=== PATIENT | female | born 1975 | race Caucasian/White ===

== ENCOUNTER 2020-03-02 06:26 | Outpatient (REF) | payer OTHER, SELFPAY | END 2020-03-02 06:27 | disposition home or self-care (01) | LOC: HO.LAB 06:26 | PROVIDERS: Visit Provider Internal Medicine | DX: Z20.828 Contact with and (suspected) exposure to other viral communicable diseases (principal) | CPT/HCPCS: C9803; U0003 ==

== ENCOUNTER 2024-10-14 10:56 | Emergency (ER) | payer OTHER, SELFPAY ==
--- NOTE | ~2024-10-14 | XR_ITS ---
EXAMINATION: XR HAND, RIGHT CLINICAL INFORMATION: fall, bruising COMPARISON: None available. TECHNIQUE: PA, lateral, and oblique views of the right hand. FINDINGS: The carpal bones are intact. Metacarpal bones are intact. The phalanges are intact with normal alignment. No metallic or radiopaque foreign body. No lytic or blastic lesions. No subcutaneous edema. XR/XR hand RT min 3V IMPRESSION: No acute fracture or dislocation. Electronically signed by: Jostin Cortes MD 10/14/2024 01:14 PM EDT
--- NOTE | ~2024-10-14 | XR_ITS ---
EXAMINATION: XR HIP, LEFT CLINICAL INFORMATION: fall,lateral swelling COMPARISON: Correlated to lumbar x-ray dated November 26, 2017. TECHNIQUE: AP view and oblique views of the left hip. AP view pelvis. FINDINGS: Sclerosis along the articular surface of the acetabulum, bilaterally. Asymmetric joint space narrowing both coxofemoral joints. No acute cortical disruption or malalignment, left coxofemoral joint. Spina bifida occulta S1, congenital. 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 No lytic or blastic lesions. XR/XR hip LT w PEL1V IMPRESSION: No acute fracture or dislocation. Mild osteoarthrosis/osteoarthritis both hips. Electronically signed by: Jostin Cortes MD 10/14/2024 01:12 PM EDT
--- NOTE | ~2024-10-14 | XR_ITS ---
EXAMINATION: XR FOREARM 2 VIEWS RIGHT HISTORY: fall, proximal bruising COMPARISON: There are no prior studies available for comparison. FINDINGS: AP and lateral views of the right forearm are submitted. Osseous mineralization is normal. There is no fracture or dislocation. The joint visualized wrist and elbow spaces are preserved. The soft tissues are unremarkable. XR/XR forearm RT 2V IMPRESSION: No evidence of fracture of the right forearm. Electronically signed by: Alexander Sebastian MD 10/14/2024 01:10 PM EDT
--- NOTE | ~2024-10-14 | XR_ITS ---
EXAMINATION: XR HAND, LEFT CLINICAL INFORMATION: fall, pain over 1/2nd mcps COMPARISON: None available. TECHNIQUE: PA, lateral, and oblique views of the left hand. FINDINGS: The carpal bones are intact. The metacarpal bones are intact. The phalanges of the digits are intact with normal alignment. No lytic or blastic lesions. No subcutaneous emphysema. No metallic or radiopaque foreign body. No gross bony erosions. XR/XR hand LT min 3V IMPRESSION: No acute fracture or dislocation. Negative exam. Electronically signed by: Jostin Cortes MD 10/14/2024 01:13 PM EDT
--- NOTE | ~2024-10-14 | XR_ITS ---
EXAMINATION: XR HUMERUS RIGHT HISTORY: fall, pain and bruising COMPARISON: There are no prior studies available for comparison. FINDINGS: AP and lateral views of the right humerus are submitted. Osseous mineralization is normal. There is no fracture or dislocation. The visualized shoulder and elbow joint spaces are preserved. The soft tissues are unremarkable. XR/XR humerus RT IMPRESSION: No evidence of fracture of the right humerus. Electronically signed by: Alexander Sebastian MD 10/14/2024 01:09 PM EDT
[2024-10-14 11:53] VITALS: BP 137/78; PULSE 99; RESP 22; O2SAT 97; BMI 46.1
--- NOTE | 2024-10-14 11:58 | ED_ITS ---
HPI - General Adult General Chief complaint: Fall Stated complaint: Fall down stairs, R arm, L hip leg pain Time Seen by Provider: 10/14/24 13:17 Source: patient Mode of arrival: ambulatory Limitations: no limitations History of Present Illness ED Provider: Angelica Tatum PA-C HPI narrative: Patient is a 49 year old female with no past medical history presenting after a mechanical fall this morning. She says she was turning around the corner to turn the light on before going down stairs when she lost her balance and fell face first and slid down the entire set of wooden steps. She denies LOC. She also says at the bottom of the stairs there is a pole that her left hip struck. Her pain is greatest in her right elbow, left wrist, and left hip. She endorses some numbness and tingling in her right arm shortly after the fall that has now resolved. She denies any cuts or bleeding besides a very small scratch on her left hip. She says the pain comes in waves and worsens when she stands up or walks. She denies fever, chills, dizziness, chest pain, palpitations, shortness of breath, nausea, vomiting, or abdominal pain. Onset (ago): hour(s) Radiation: non-radiation Severity: moderate Severity scale (1-10): 8 Quality: aching Pain Consistency: intermittent Relieving factors: rest Exacerbating factors: movement Associated symptoms: denies other symptoms Treatments prior to arrival: none Related Data Allergies Allergy/AdvReac Type Severity Reaction Status Date / Time No Known Allergies Allergy Verified 10/14/24 11:55 Review of Systems Constitutional: Constitutional: Reports no additional constitutional complaints, Denies chills, Denies fever(s) and Denies night sweats Eyes: Eyes: Reports no additional eye complaints, Denies blurry vision, Denies change in vision, Denies diplopia, Denies eye discharge, Denies loss of vision and Denies eye pain Cardiovascular: Cardiovascular: Reports no additional cardiovascular complaints, Denies chest pain, Denies lightheadedness, Denies Loss of Consciousness and Denies dyspnea Respiratory: Respiratory: Reports no additional respiratory complaints and Denies dyspnea Gastrointestinal: Gastrointestinal: Reports no additional gastrointestinal complaints, Denies abdominal pain, Denies melena, Denies hematochezia, Denies change in bowel habits and Denies change in stool character Genitourinary: Genitourinary: Denies hematuria, Denies urinary frequency and Denies dysuria Musculoskeletal: Musculoskeletal: Reports as per HPI Neurologic: Denies loss of vision Psychiatric: Psychiatric: Reports no additional psychiatric complaints Endocrine: Endocrine: Reports no additional endocrine complaints Hematologic/Lymphatic: Hematologic/Lymphatic: Reports no additional hematologic/lymphatic complaints Allergic/Immunologic: Allergic/Immunologic: Reports no additional allergic/immunologic complaints [facility] Past Medical History Attestation statement: The following information was validated with the patient. Source: old records reviewed and nursing notes reviewed Social History Social History Advance Directives: No Advance Directives Information Provided: No Physical Exam ED Vital Signs: Vital Signs - 24 hr 10/14/24 11:53 10/14/24 14:00 10/14/24 14:42 Temperature 98.1 F 98.1 F Pulse Rate 99 92 92 Respiratory Rate 22 H 18 18 Blood Pressure 137/78 154/87 H 154/87 H Pulse Oximetry 97 96 96 Oxygen Delivery Method Room Air Room Air Room Air BMI result Body Mass Index 46.1 Const General: cooperative, no acute distress, alert and awake Nutritional Appearance: well nourished Orientation/consciousness: patient oriented x3 HENMT Head: Yes normal to inspection and Yes atraumatic Ears: hearing grossly normal bilaterally and external ears normal General nose exam: Normal external nose present, no nasal discharge noted and no epistaxis Face and sinus: Yes normal facial exam, No abrasion and No laceration Mouth: Normal oral and palatal mucosa present, no drooling and no muffled voice Eyes General: appearance normal, both eyes and all related structures Periorbital: periorbital findings normal Eyelids: Yes eyelids normal Conjunctivae: conjunctivae normal Pupils: Equal, round and reactive pupils present EOM: EOMs intact bilaterally Neck Neck: Yes normal visual inspection and Yes full ROM Resp Effort & Inspection: normal respiratory effort and able to speak in complete sentences Back/Spine/Pelvis Other: small abrasion noted to the left hip Neuro General: patient oriented x3, moves all extremities and CN's II-XI intact bilaterally Cranial nerves: Yes Equal, round and reactive pupils present Cognition (Neuro): normal cognition Extrem General: Yes full ROM and Yes capillary refill normal Right upper extremity: elbow/forearm (small area of contusion to the dorsal right forearm) Left upper extremity: normal to inspection and wrist Left lower extremity: hip/thigh (small abrasion to the left hip - no gaping, no active bleeding) Psych Appearance: grossly normal Mental Status: mental status grossly normal Affect: normal affect Attitude: cooperative Thought process: Normal thought process present Thought content: Normal thought content present Insight: Good insight present (Psych) Course Course Course Narrative: This is a rapid medical exam performed by Vinayak Ace NP: Additional HPI, ROS, PE not included below will be deferred to primary provider. Patient is a 49-year-old right hand dominant female presenting to the emergency department with complaint of left hip, right upper arm, forearm and hand pain as well as left hand pain after a fall down a flight of 12 stairs prior to arrival. States that around 9:00 a.m. she turned to flip the light switch and fell down the stairs on her stomach. Denies head strike or loss of consciousness, is not anticoagulated. Denies neck or back pain. Ambulating without difficulty. Plan: Imaging, declined ibuprofen in triage Medical Decision Making Medical Decision Making MDM Narrative: Patient is a 49 year old assigned female at with no reported medical history presenting to the emergency department today with musculoskeletal pain after a fall. Patient's physical exam was as noted in the physical exam portion of this note. Patient's right humerus, right forearm, left hand, lumbar, and right hand x-rays showed no acute process. I explained my physical exam findings as well as all test results to the patient. I answered all questions asked by the patient. I stressed the importance of the patient taking her medication as directed (either prescribed or as the over the counter packaging recommends). I stressed the importance of the patient following up with her primary care provider. I stressed the importance of the patient returning to the emergency department immediately if her symptoms were to worsen or if she were to develop any dizziness, shortness of breath, difficulty breathing, chest pain, blurry vision, loss of vision, nausea, vomiting, abdominal pain, fever, chills, back pain, or any other complaints. Patient verbalized agreement and understanding with this treatment plan and discharge. Differential Diagnosis Differential Diagnoses: The differential diagnosis associated with the presentation includes Fall Contusion Fracture Strain Sprain Admission/Observation Consideration of admission/observation: Escalation of care including admission/observation considered Patient would have been admitted to the hospital had her work up had any findings where hospital admission was appropriate and her clinical presentation warranted hospital admission. Independent Interpretation I performed an independent interpretation of an: Plain X-Ray Interpretation: My interpretation is in agreement with the radiologist's impression of these imaging studies. EXAMINATION: XR HUMERUS RIGHT HISTORY: fall, pain and bruising COMPARISON: There are no prior studies available for comparison. FINDINGS: AP and lateral views of the right humerus are submitted. Osseous mineralization is normal. There is no fracture or dislocation. The visualized shoulder and elbow joint spaces are preserved. The soft tissues are unremarkable. XR/XR humerus RT IMPRESSION: No evidence of fracture of the right humerus. Electronically signed by: Alexander Sebastian MD 10/14/2024 01:09 PM EDT Dictated By: Alexander Sebastian MD Signed By: Electronically signed by Alexander Sebastian MD 10/14/24 1309 EXAMINATION: XR FOREARM 2 VIEWS RIGHT HISTORY: fall, proximal bruising COMPARISON: There are no prior studies available for comparison. FINDINGS: AP and lateral views of the right forearm are submitted. Osseous mineralization is normal. There is no fracture or dislocation. The joint visualized wrist and elbow spaces are preserved. The soft tissues are unremarkable. XR/XR forearm RT 2V IMPRESSION: No evidence of fracture of the right forearm. Electronically signed by: Alexander Sebastian MD 10/14/2024 01:10 PM EDT Dictated By: Alexander Sebastian MD Signed By: Electronically signed by Alexander Sebastian MD 10/14/24 1310 EXAMINATION: XR HAND, LEFT CLINICAL INFORMATION: fall, pain over 03/07 mcps COMPARISON: None available. TECHNIQUE: PA, lateral, and oblique views of the left hand. FINDINGS: The carpal bones are intact. The metacarpal bones are intact. The phalanges of the digits are intact with normal alignment. No lytic or blastic lesions. No subcutaneous emphysema. No metallic or radiopaque foreign body. No gross bony erosions. XR/XR hand LT min 3V IMPRESSION: No acute fracture or dislocation. Negative exam. Electronically signed by: Jostin Cortes MD 10/14/2024 01:13 PM EDT RP Dictated By: Jostin Schultz MD Signed By: Electronically signed by Jostin Mcfadden MD 10/14/24 1313 EXAMINATION: XR HIP, LEFT CLINICAL INFORMATION: fall,lateral swelling COMPARISON: Correlated to lumbar x-ray dated November 26, 2017. TECHNIQUE: AP view and oblique views of the left hip. AP view pelvis. FINDINGS: Sclerosis along the articular surface of the acetabulum, bilaterally. Asymmetric joint space narrowing both coxofemoral joints. No acute cortical disruption or malalignment, left coxofemoral joint. Spina bifida occulta S1, congenital. 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 No lytic or blastic lesions. XR/XR hip LT w PEL1V IMPRESSION: No acute fracture or dislocation. Mild osteoarthrosis/osteoarthritis both hips. Electronically signed by: Jostin Cortes MD 10/14/2024 01:12 PM EDT RP Dictated By: oJstin Schultz MD Signed By: Electronically signed by Jostin Mcfadden MD 10/14/24 1312 EXAMINATION: XR HAND, RIGHT CLINICAL INFORMATION: fall, bruising COMPARISON: None available. TECHNIQUE: PA, lateral, and oblique views of the right hand. FINDINGS: The carpal bones are intact. Metacarpal bones are intact. The phalanges are intact with normal alignment. No metallic or radiopaque foreign body. No lytic or blastic lesions. No subcutaneous edema. XR/XR hand RT min 3V IMPRESSION: No acute fracture or dislocation. Electronically signed by: Jostin Cortes MD 10/14/2024 01:14 PM EDT Dictated By: Jostin Schultz MD Signed By: Electronically signed by Jostin Mcfadden MD 10/14/24 1314 Radiology Impression Discussion of test interpretation with radiology: I have reviewed the radiologist's reading. Discharge Plan Discharge Clinical Impression: Fall, Contusion Patient Disposition: Home, Self-Care Instructions: Contusion in Adults (ED), Fall Prevention (ED) Additional Instructions: Your imaging today showed no acute fractures / breaks. You are bruised and will be sore for several days. IF you are prescribed home medications and/or you are taking over the counter medications at home - it is very important you continue to do so as prescribed / directed unless told otherwise. Follow up with your primary care provider. Return to the emergency department immediately if your symptoms worsen or if you develop any numbness, tingling, dizziness, shortness of breath, difficulty breathing, chest pain, blurry vision, loss of vision, nausea, vomiting, abdominal pain, fever, chills, back pain, or any other complaints. Please see the information below about our Patient Portal. If you are not yet enrolled in the [facility] Patient Portal, you will receive an enrollment email invitation following your visit to any [facility] setting. You may also self-enroll in the Patient Portal by visiting our website: [email or web address] The following information is required to access the Patient Portal: - Your [facility] Medical Record Number - Your personal home email address (must match what is in your electronic medical record, Registration staff can assist with this) - Name - Date of Capabilities of the Patient Portal: - Message some providers - View upcoming appointments - Access your health summary, medical history, and visit history - View current conditions and allergies - View procedure and lab results - View your medications, including guidelines, side effects, and precautions - Complete pre-appointment questionnaires requested by your provider - Ready summary reports of your office visits and procedures To access the Patient Portal Mobile [employer], follow these directions: - Search [employer] in the [employer] Store or [employer] Store - Download the Judd - Search for [facility] - Enter your login/password Referrals: Adelia Albert MD [Primary Care Provider, Internal Medicine] Interventions: ED Discharge Assessment Last Done: 10/14/24 14:42 Discharge Date/Time: 10/14/24 14:42 Print Language: Polish
[2024-10-14 14:00] VITALS: BP 154/87; PULSE 92; RESP 18; TEMP 36.7; O2SAT 96
[2024-10-14 14:42] VITALS: BP 154/87; PULSE 92; RESP 18; TEMP 36.7; O2SAT 96
== END 2024-10-14 14:42 | disposition home or self-care (01) ==
PROVIDERS: Emergency Provider Emergency Medicine; PCP Internal Medicine
DX: M25.531 Pain in right wrist (principal); M25.552 Pain in left hip; S60.211A Contusion of right wrist, initial encounter; M25.521 Pain in right elbow; W10.8XXA Fall (on) (from) other stairs and steps, initial encounter; Y93.89 Activity, other specified; Y92.89 Other specified places as the place of occurrence of the external cause; Y99.8 Other external cause status
CPT/HCPCS: 73060; 73090; 73130; 73502; 99283

== ENCOUNTER → 2024-10-14 11:58 | Outpatient (BNV) | payer OTHER, SELFPAY | PROVIDERS: Emergency Provider Emergency Medicine; PCP Internal Medicine; Visit Provider Radiology Diagnostic Radiology | DX: M25.551 Pain in right hip (principal); M79.641 Pain in right hand; M79.642 Pain in left hand; M79.601 Pain in right arm | CPT/HCPCS: 73060; 73090; 73130; 73502 ==